=== PATIENT | male | born 1950 | race Hispanic/Latino ===

== ENCOUNTER 2022-02-12 12:23 | Emergency (ER) | payer MEDICARE ==
[~2022-02-12] VITALS: Ht 162.6 cm; Wt 59.0 kg
[2022-02-12] MEDS ORDERED: MUCINEX DM ER1 EACH PO (16:00)
== END 2022-02-12 16:16 | disposition home or self-care (01) ==
LOC: ER 12:28
DX: R05.9 Cough, unspecified (principal); J40 Bronchitis, not specified as acute or chronic; E11.9 Type 2 diabetes mellitus without complications; E03.9 Hypothyroidism, unspecified
CPT/HCPCS: 71045; 99283

== ENCOUNTER 2022-08-31 20:18 | Emergency (ER) | payer MEDICARE, OTHER ==
[~2022-08-31] VITALS: Ht 162.6 cm; Wt 59.0 kg
[~2022-08-31 20:18] MED LIST: MUCINEX DM ER1 EACH PO
[2022-08-31] MEDS ORDERED: TETANUS/DIPHTHERIA TOX ADULT 0.5 ML SYR IM ONE (20:30)
[2022-08-31] MEDS ORDERED: LIDOCAINE HCL 2% 2 ML AMP INJ ONE (20:30)
[2022-08-31] MEDS ORDERED: LIDOCAINE HCL 1% 2 ML AMP INJ ONE (21:15)
[2022-08-31] MEDS ORDERED: NEOMYCIN/POLYMYX/BACITR OINT 0.9 GM PKT TOP ONE (23:30)
[2022-09-01 00:36] VITALS: BP 129/84; PULSE 72; RESP 18; TEMP 98.2; O2SAT 98
== END 2022-09-01 00:40 | disposition home or self-care (01) ==
LOC: ER 20:23
DX: S61.512A Laceration without foreign body of left wrist, initial encounter (principal); W01.198A Fall on same level from slipping, tripping and stumbling with subsequent striking against other object, initial encounter; Y93.01 Activity, walking, marching and hiking; Y92.89 Other specified places as the place of occurrence of the external cause; E11.9 Type 2 diabetes mellitus without complications; E03.9 Hypothyroidism, unspecified
CPT/HCPCS: 12001; 73110; 90471; 90714; 99284; J2001